=== PATIENT | female | born 1975 | race African-American/Black ===

== ENCOUNTER 2016-08-23 08:06 | Emergency (ER) | payer MEDICAID ==
[~2016-08-23] VITALS: Ht 149.9 cm; Wt 100.0 kg
[~2016-08-23 08:06] MED LIST: DIFL150T PO; METR500I3 PO
[2016-08-23 08:08] VITALS: BP 139/88; PULSE 97; RESP 18; TEMP 97.9; O2SAT 99
[2016-08-23] MEDS ORDERED: ALEV220T14 PO (08:40)
--- NOTE | 2016-08-23 09:28 | PD ---
HPI Chief Complaint: Pain: Acute or Chronic Time Seen by Provider: 09:24 Travel History International Travel<30 days: No Contact w/Intl Traveler<30days: No Traveled to known affect area: No History of Present Illness HPI 31-year-old male presents to the emergency Department with complaint of left mid back pain for greater than 1 year. She states she was seen a few months ago with complaint of back pain and had imaging done and was told that she has arthritis in her back. She has a follow-up appointment with her primary care provider, Dr. Johnson, on September 07. She denies new or recent injury. Denies paresthesias, loss of sensation, decreased range of motion, decreased strength to all extremities. Pain is worse with movement. She has tried multiple over- the-counter medications with no relief. No known relieving factors. Denies fever, chills, nausea, vomiting. No known allergies. No other modifying factors or associated signs and symptoms. History Past Medical Histgory LMP: 08/20/16 Hx Cancer: No Social History Alcohol Use: No Tobacco Use: No Allergies-Medications (Allergen,Severity, Reaction): Coded Allergies: No Known Allergies (Verified , 08/23/16) Reported Meds & Prescriptions Reported Meds & Active Scripts Active Reported Aleve Arthritis (Naproxen Sodium) 220 Mg Tab 220 Mg PO DIRECTED Review of Systems Except as stated in HPI: all other systems reviewed are Neg Physical Exam Narrative GENERAL: Well-nourished, well-developed female patient, in no acute distress SKIN: Warm and dry. HEAD: Atraumatic. Normocephalic. EYES: Pupils equal and round. No scleral icterus. No injection or drainage. ENT: Mucosa pink and moist. Airway patent. NECK: Trachea midline. CARDIOVASCULAR: Regular rate and rhythm. No murmur appreciated. RESPIRATORY: No accessory muscle use. Breath sounds clear and equal bilaterally. GASTROINTESTINAL: Rounded. MUSCULOSKELETAL: Reproducible tenderness to left upper back to the musculature just below the left scapula. Ambulatory with normal gait. Sitting up in bed at 90. No obvious deformities. No clubbing. No cyanosis. No edema. BACK: No midline point tenderness on palpation of the thoracic spine. Tenderness on palpation of bilateral iliosacral area. No obvious deformities. NEUROLOGICAL: Awake and alert. Oriented 3. No obvious cranial nerve deficits. Motor grossly within normal limits. Normal speech. Moves all extremities. 5/5 strength to all extremities. Sensory intact. PSYCHIATRIC: Appropriate mood and affect; insight and judgment normal. Data Data Last Documented VS Vital Signs Date Time Temp Pulse Resp B/P Pulse Ox O2 Delivery O2 Flow Rate FiO2 08/23/16 08:08 97.9 97 18 139/88 99 Room Air MDM Medical Screen Exam Complete: Yes Emergency Medical Condition: No Differential Diagnosis Chronic back pain, muscle strain, muscle spasm Narrative Course 41-year-old female with complaint of left upper back pain that has been there for over a year. She has a follow-up appointment with her primary care provider , Dr. Meyer, on September 07. She has previously been seen for the same complaint. No new or recent injury. Vital signs are stable and the patient is stable for outpatient follow-up and treatment. The patient has no urgent or emergent medical complaints. There is no emergent or urgent medical need at this time. I instructed the patient to follow up with their primary care provider. A medical screening exam was performed: At the time of evaluation the presenting medical condition was determined not to be of an emergent nature. The patient was given the option of receiving additional care, but declined. Patient was given options for additional community resources from which to obtain care. The Patient Has Been advised to seek medical attention for their presenting complaint. The patient has been advised to return to the ER at any time if an emergent condition develops. Primary Impression: Encounter for medical screening examination Condition: Stable Ratna Negrete Aug 23, 2016 09:28
== END 2016-08-23 10:44 | disposition left against medical advice (07) ==
LOC: NEPB 08:06
DX: M54.9 Dorsalgia, unspecified (principal)
CPT/HCPCS: 99281

== ENCOUNTER 2017-10-07 19:08 | Emergency (ER) | payer OTHER, MEDICAID ==
[~2017-10-07] VITALS: Ht 149.9 cm; Wt 95.0 kg
[~2017-10-07 19:08] MED LIST changes: +ALEV220T14 PO; -DIFL150T PO; -METR500I3 PO
[2017-10-07 19:23] VITALS: BP 146/88; PULSE 92; RESP 16; TEMP 98.2; O2SAT 100
[2017-10-07] MEDS ORDERED: IBUP1TAB7 PO (19:44)
[2017-10-07] MEDS ORDERED: ROBA500T PO (19:44)
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
[2017-10-07] MEDS ORDERED: ORPHENADRINE INJ 60 MG/2 ML AMP IM ONE (19:45)
[2017-10-07] MEDS ORDERED: KETOROLAC TROMETHAMINE 60 MG/2 ML (IM) VIAL IM ONE (19:45)
== END 2017-10-07 20:28 | disposition home or self-care (01) ==
LOC: NEPA 19:08
DX: M62.830 Muscle spasm of back (principal); M25.511 Pain in right shoulder; V43.52XA Car driver injured in collision with other type car in traffic accident, initial encounter
CPT/HCPCS: 96372; 99283; J1885; J2360